=== PATIENT | male | born 1950 | race Caucasian/White ===

== ENCOUNTER 2021-03-18 08:31 | Inpatient (IN) | payer OTHER, BC, MEDICARE ==
[~2021-03-18] VITALS: Ht 175.3 cm; Wt 97.1 kg
[2021-03-18] VITALS (10 sets, daily range): BP systolic 104–130; BP diastolic 49–68; PULSE 51–83; TEMP 98–99
--- NOTE | 2021-03-18 09:15 | NUR ---
PATIENT IS A DIRECT ADMIT INTO ROOM 328 WITH INFECTED LEFT KNEE. PATIENT SCHEUDLED FOR I&D LATER TODAY. NPO. AT BEDSIDE, ADMISSION DATA & MED LIST OBTAINED. HOSPITALIST & ORTHO NOTIFIED OF ARRIVAL. STARTED 20 GAUZE IV INTO LEFT WRIST ON FIRST ATTEMPT. HEAD TO TOE ASSESSMENT COMPLETE. VSS. BS WAS 141. ORIENTED TO ROOM. CALL LIGHT IN REACH.
[2021-03-18] MEDS ORDERED: ULTRAM 50MG TAB50 MG PO (09:21)
[2021-03-18 10:12] LABS: BASO % 0.2 % (0.0-2.0); EOS # 0.1 (0.0-0.7); EOS % 0.5 % (0-4.0); GRAN # 9.5 (1.4-6.5); GRAN % 79.7 % (42.2-75.2); HEMATOCRIT 39.9 % (42.0-52.0); HEMOGLOBIN 12.7 g/dl (13.5-18.0); LYMPH # 1.2 (1.2-3.4); LYMPH % 9.7 % (20.0-51.0); MEAN CELL VOLUME 96 fl (80.0-100.0); MEAN CORPUSCULAR HEMOGLOBIN 31 pg (27.0-31.0); MEAN CORPUSCULAR HGB CONC 32 g/dl (33.0-37.0); MEAN PLATELET VOLUME 11.4 fl (7.4-10.4); MONO # 1.1 (0.1-0.6); MONO % 9.6 % (1.7-9.3); PLATELET COUNT 196 K/mm3 (130-400); RED BLOOD COUNT 4.14 M/mm3 (4.20-5.60); REDCELL DISTRIBUTION WIDTH-CV 13.7 % (11.5-14.5)
[2021-03-18] MEDS ORDERED: HYGROTON 2525 MG/TAB PO (10:27)
[2021-03-18] MEDS ORDERED: ZYLOPRIM 100MG100 MG PO (10:27)
[2021-03-18] MEDS ORDERED: HYTRIN10 M1 PO (10:42)
[2021-03-18] MEDS ORDERED: MOBIC15 MG PO (10:43)
[2021-03-18] MEDS ORDERED: ZESTRIL 20MG TA20 MG PO (10:43)
[2021-03-18] MEDS ORDERED: GLUCOPHAGE500 MG/TAB PO (10:44)
[2021-03-18] MEDS ORDERED: DESYREL 50MG50 MG PO (10:44)
[2021-03-18] MEDS ORDERED: NORVASC 10MG10 MG PO (10:44)
[2021-03-18] MEDS ORDERED: LIPITOR20 MG PO (10:45)
[2021-03-18 10:47] LABS: ERYTHROCYTE SEDIMENTATION RATE 27 mm/hr (0-30)
[2021-03-18 11:30] LABS: COLLECTION METHOD CLEAN CATCH
[2021-03-18 11:42] LABS: MUCOUS Present /lpf; PH 5 (5-8); SQUAMOUS EPITHELIAL None Seen /hpf; URINE APPEARANCE Clear; URINE BACTERIA None Seen /hpf; URINE BILIRUBIN Negative (NEGATIVE); URINE BLOOD Negative (NEGATIVE); URINE COLOR Yellow; URINE GLUCOSE Negative (NEGATIVE); URINE KETONE Trace (NEGATIVE); URINE LEUKOCYTE ESTERASE Negative (NEGATIVE); URINE NITRATE Negative (NEGATIVE); URINE PROTEIN(semi-quant) Negative (NEGATIVE); URINE RBC 0-2 /hpf; URINE UROBILINOGEN Negative (NEGATIVE)
[2021-03-18 12:00] LABS: ALBUMIN 3.4 gm/dL (3.4-4.8); BILIRUBIN,TOTAL 0.6 mg/dL (0.2-1.2); C-REACTIVE PROTEIN 14.6 mg/dL (0.00-0.50); CALCIUM 9.8 mg/dL (8.4-10.2); CREATININE, serum 1.23 mg/dL (0.72-1.25); POTASSIUM 4.1 mmol/L (3.5-4.5); TOTAL PROTEIN 7.1 gm/dL (6.2-8.1)
--- NOTE | 2021-03-18 12:55 | NUR ---
AIVS CALLED FOR PICC PLACEMENT PER ORTHO
--- NOTE | 2021-03-18 13:30 | NUR ---
NURSING RETURNED FROM LUNCH TO FIND PATIENT WAS SETTING OFF HIS CHAIR ALARM. NURSING ENTERED ROOM AND BEGAN YELLING AT STAFF FOR NOT ANSWERING THE CALL LIGHT SOON ENOUGH. PATIENT CALLED OUT TO USE THE BATHROOM, ANSWERED AT THE SURGICAL DESK, WHEN PATIENT DID NOT GET IMMEDIATE RESPONCE HE CALLED OUT APPROX 3 MINUTES LATER. PRIMARY NURSE UNAWARE THE PATIENT HAD CALLED OUT, CALL LIGHT ANSWERED BY ANOTHER NURSE AND PCT NOTIFIED. PATIENT AND ARE NOW BOTH YELLING AT NURSING STATING THE "HAVE THE RIGHT TO CARE, HE HAS THE RIGHT TO BE COMFORTABLE" AND THEN STARTED COMPLAINING ABOUT THE PRESSURE MATRESS BEING TO UNCOMFORTABLE. 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 THE PATIENT'S DID NOT CARE TO HEAR ABOUT PRESSURE ULCER PREVENTION AND ASKED FOR SOMEONE ELSE TO COME HELP HER TO THE BATHROOM AND BACK TO BED. GYMNASTIC COACH ASSISTED PATIENT BACK INTO BED, MATRESS CHANGED FROM PRESSURE MATRESS TO EGG-CRATE TOPPER. IPR LUNCH WAGON OPERATOR NOTIFED AND WENT IN TO TALK TO PATIENT AND HIS .
--- NOTE | 2021-03-18 14:20 | NUR ---
PATIENT GOING DOWN TO SURGERY VIA BED. CONSENT ON CHART. IV FLUIDS INFUSING VIA GRAVITY INTO LEFT WRIST IV. AIVS PLACED PICC INTO RIGHT UPPER ARM. AT BEDSIDE. PATIENT OFF FLOOR.
--- NOTE | 2021-03-18 16:50 | NUR ---
PATIENT BACK IN ROOM POST OP. ORIENTED BUT DROWSY. VSS. DENIES PAIN OR NAUSEA. LEFT KNEE DRESSING IS CD&I WITH ACEWRAP. HEMOVAC TO COMPRESSION WITH NO DRAINAGE NOTED AT THIS TIME. IV FLUIDS INFUSING INTO LEFT WRIST IV. RIGHT UPPER ARM PICC TO INT. HEAD TO TOE ASSESSMENT WNL. AT BEDSIDE. CALL LIGHT IN REACH.
--- NOTE | 2021-03-18 23:21 | NUR ---
Patient alert and oriented. Patient reports left knee pain is minimal while at rest. Left knee covered with Helder-wrap. Dressing C/D/I. Hemovac drains minimal drainage. Patient tolerating PO food well. No N/V noted. Patient using urinal to void. Assisted patient to the bathroom to void around 9pm. Patient ambulates with a walker. Standby assist provided. Call light in reach. Will continue to monitor.
[2021-03-19 03:46] VITALS: BP 116/57; PULSE 59; TEMP 97.9
--- NOTE | 2021-03-19 06:21 | NUR ---
Patient slept well throughout the night. Pain is minimal and denies PRN pain meds. Patient tolerating PO intake well. VS stable. No acute distress noted. Call light in reach.
[2021-03-19 07:16] LABS: BASO % 0.3 % (0.0-2.0); EOS # 0.2 (0.0-0.7); GRAN # 4.9 (1.4-6.5); GRAN % 65.4 % (42.2-75.2); LYMPH # 1.3 (1.2-3.4); LYMPH % 17.7 % (20.0-51.0); MEAN CELL VOLUME 97 fl (80.0-100.0); MEAN CORPUSCULAR HGB CONC 32 g/dl (33.0-37.0); MEAN PLATELET VOLUME 10.4 fl (7.4-10.4); MONO # 1.1 (0.1-0.6); MONO % 14.2 % (1.7-9.3); PLATELET COUNT 201 K/mm3 (130-400); RED BLOOD COUNT 3.42 M/mm3 (4.20-5.60); REDCELL DISTRIBUTION WIDTH-CV 13.7 % (11.5-14.5)
[2021-03-19 07:20] LABS: HEMOGLOBIN 10.5 g/dl (13.5-18.0); MEAN CORPUSCULAR HEMOGLOBIN 31 pg (27.0-31.0)
[2021-03-19 07:21] LABS: HEMATOCRIT 33.3 % (42.0-52.0)
[2021-03-19 07:22] VITALS: BP 128/60; PULSE 58; TEMP 98.1
[2021-03-19 07:33] LABS: CALCIUM 8.9 mg/dL (8.4-10.2); CREATININE, serum 1.25 mg/dL (0.72-1.25)
--- NOTE | 2021-03-19 08:00 | NUR ---
PATIENT IS A&O. VSS ON TELE. RATES PAIN IN LLE AT 5/10. GAVE PRN ROXICODONE, ONE TAB WITH SCHEDULED TYLENOL & TORADOL. PATIENT RESTING UP IN BED WITH LLE ELEVATED WITH PILLOWS. LLE DRESSING IS CD&I WITH ACEWRAP. TEDS TO RLE. SCD'S TO BLE. POSITIVE PEDAL PULSES TO BLE. HEMOVAC DRAIN NOTED SCANT AMOUNTS OF BLOODY DRAINAGE. PATIENT EAT/DRINK/VOIDING SUFFIENT AMOUNTS. LEFT WRIST IV AND RIGHT UPPER ARM PICC TO INT. NO C/O N/V. TOLERATING AHA DIET. BREAKFAST TRAY AT BEDSIDE. AM BS WAS 106. AM MEDS GIVEN. HEAD TO TOE ASSESSMENT COMPLETE, SEE CHARTING. NO OTHER NEEDS AT THIS TIME. CALL LIGHT IN REACH.
[2021-03-19 11:28] VITALS: BP 104/57; PULSE 54; TEMP 98.3
--- NOTE | 2021-03-19 13:56 | NUR ---
Plan is to return home to [facility] with Elham . Patient reports that his PCP is Bandar Sawyer at the [facility] and Dr. Sandy locally. Patient shares that he needs a walker and has crutches. Obtains medications via [facility] or [facility]. Patient reports that he has pain 2 out of ten. Educated on helping with Walker. Will obtain script from and Send to [facility]. Patient denies any other concerns at this time and reports care is good. Patient is hard of hearing and battery . Educated on services available through case management.
[2021-03-19 16:08] VITALS: BP 113/62; PULSE 57; TEMP 98.6
[2021-03-19 19:42] VITALS: BP 121/73; PULSE 57; TEMP 98.4
--- NOTE | 2021-03-19 22:43 | NUR ---
Patient alert and oriented. Patient reports left knee pain is minimal while at rest. Left knee covered with dressing/faiza-wrap. Dressing C/D/I. Left knee remains elevated on the pillow. Hemovac in place and has scant amount of bloody output noted. Left wrist INT and right upper arm PICC site C/DI. Patient tolerating PO food inatake. All scheduled meds given per AUG. Call light in reach. Will continue to monitor.
[2021-03-20] VITALS (7 sets, daily range): BP systolic 104–137; BP diastolic 53–71; PULSE 48–64; TEMP 97.6–99.2
[2021-03-20 07:19] LABS: BASO % 0.4 % (0.0-2.0); EOS # 0.3 (0.0-0.7); EOS % 4.5 % (0-4.0); GRAN # 4.4 (1.4-6.5); GRAN % 62.1 % (42.2-75.2); LYMPH # 1.4 (1.2-3.4); MEAN CELL VOLUME 95 fl (80.0-100.0); MEAN CORPUSCULAR HEMOGLOBIN 30 pg (27.0-31.0); MEAN CORPUSCULAR HGB CONC 32 g/dl (33.0-37.0); MEAN PLATELET VOLUME 10.1 fl (7.4-10.4); MONO # 0.9 (0.1-0.6); MONO % 12.6 % (1.7-9.3); PLATELET COUNT 217 K/mm3 (130-400); REDCELL DISTRIBUTION WIDTH-CV 13.6 % (11.5-14.5)
[2021-03-20 07:27] LABS: HEMATOCRIT 31.3 % (42.0-52.0)
--- NOTE | 2021-03-20 08:00 | NUR ---
PATIENT IS A&O. VSS ON TELE. RATES PAIN IN LLE AT 4/10. GAVE PRN ROXICODONE, ONE TAB WITH SCHEDULED TYLENOL & TORADOL. PATIENT RESTING UP IN BED CHAIR WITH LLE ELEVATED WITH PILLOWS. LLE DRESSING IS CD&I WITH ACEWRAP. ORTHO AT BEDSIDE AND DC'D HEMOVAC DRAIN AND REPLACED DRESSING WITH 4X4'S, ABD, SOFT ROLL & ACEWRAP. TEDS TO RLE. SCD'S CURRENTLY OFF. POSITIVE PEDAL PULSES TO BLE. PATIENT EAT/DRINK/VOIDING SUFFIENT AMOUNTS. LEFT WRIST IV AND RIGHT UPPER ARM PICC TO INT. NO C/O N/V. TOLERATING AHA DIET. BREAKFAST TRAY AT BEDSIDE. AM BS WAS 116. AM MEDS GIVEN. HEAD TO TOE ASSESSMENT COMPLETE, SEE CHARTING. NO OTHER NEEDS AT THIS TIME. CALL LIGHT IN REACH.
[2021-03-20 09:47] LABS: CREATININE, serum 1.16 mg/dL (0.72-1.25); POTASSIUM 4.2 mmol/L (3.5-4.5)
--- NOTE | 2021-03-20 20:15 | NUR ---
PT IN BED, IS ALERT AND ORIENTED X4. HAS DRY DRSG TO LEFT KNEE, ARTURO WRAP SECURING. SL TO LEFT FOREARM AND RT PICC ALL FLUSH WELL. TAKES HS MEDS INCLUDING OXYCODONE 5MG PO FOR PAIN TO LEFT KNEE. VOIDING PER URINAL.
[2021-03-21 03:29] VITALS: BP 127/72; PULSE 50; TEMP 98.5
--- NOTE | 2021-03-21 05:22 | NUR ---
MEDICATED WITH OXYCODONE 5MG PO FOR LEFT KNEE PAIN. TAKES SCHEDULED AM MED WELL. USING URINAL WITHOUT PROBLEM.
[2021-03-21 06:57] LABS: BASO % 0.6 % (0.0-2.0); EOS # 0.3 (0.0-0.7); EOS % 4.9 % (0-4.0); GRAN # 4.1 (1.4-6.5); GRAN % 58.7 % (42.2-75.2); LYMPH # 1.7 (1.2-3.4); LYMPH % 23.5 % (20.0-51.0); MEAN CELL VOLUME 94 fl (80.0-100.0); MEAN CORPUSCULAR HGB CONC 32 g/dl (33.0-37.0); MONO # 0.8 (0.1-0.6); PLATELET COUNT 234 K/mm3 (130-400); RED BLOOD COUNT 3.17 M/mm3 (4.20-5.60); REDCELL DISTRIBUTION WIDTH-CV 13.4 % (11.5-14.5)
[2021-03-21 07:03] LABS: HEMATOCRIT 29.8 % (42.0-52.0); HEMOGLOBIN 9.5 g/dl (13.5-18.0); MEAN CORPUSCULAR HEMOGLOBIN 30 pg (27.0-31.0)
[2021-03-21 07:26] LABS: CALCIUM 9.2 mg/dL (8.4-10.2); CREATININE, serum 1.13 mg/dL (0.72-1.25); POTASSIUM 4.2 mmol/L (3.5-4.5)
[2021-03-21 07:30] VITALS: BP 102/45; PULSE 70; TEMP 98.2
--- NOTE | 2021-03-21 08:00 | NUR ---
PATIENT IS A&O. VSS ON TELE. C/O MILD DISCOMFORT IN LLE BUT IS REQUESTING SOMETHING FOR PAIN BEFORE AM THERAPY. GAVE PRN ROXICODONE, ONE TAB WITH AM MEDS. ORTHO ROUNDED EARLY THIS AM AND TOOK OFF ACEWRAP DRESSING TO LEFT KNEE. APPLIED BANDAIDS X3 TO SURGICAL SITES PER ORTHO. LEFT KNEE NOTED VERY MILD SWELLING & NEARLY NO REDNESS. PATIENT REPORTS LEFT KNEE IS A LITTLE TENDER TO TOUCH. WBAT TO LLE AND PT/OT CONSULTED. PATIENT WILL LIKELY DISCHARGE HOME ON 6 WEEKS OF IV ABX TODAY. RIGHT UPPER ARM PICC INPLACE. LEFT WRIST IV DC'D DUE TO PENDING DISCHARGE AND COVERED WITH GAUZE & COBAN. TEDS TO BLE. SCD'S CURRENTLY OFF. POSITIVE PEDAL PULSES TO BLE. NO C/O N/V. BREAKFAST TRAY AT BEDSIDE. AM MEDS GIVEN. HEAD TO TOE ASSESSMENT WNL. NO OTHER NEEDS AT THIS TIME. CALL LIGHT IN REACH. AT BEDSIDE.
--- NOTE | 2021-03-21 09:58 | NUR ---
Initial visit; Patient and his thanked Insulation Applicator for looking in on him and introducing herself. Patient thanked chaplian for offering God's blessings and keeping him in her prayers.
--- NOTE | 2021-03-21 11:12 | NUR ---
ALEX contacted Gaurang at [facility] and confirmed that they received the FWW order. ALEX requested that they deliver the FWW to the patient's room. The PA notified ALEX that the patient is going to need outpatient IV antibiotics and they are awaiting final cultures to finalize antibiotics recs. ALEX met with the patient and his , Elham, and addressed the antibiotics and informed them of outpatient IV antibiotics in the home with home health or in an Express Unit in our hospital or [facility]. The patient and his report that they would prefer to always have a professional administering the antibotics and would prefer to receive them in [facility]'s Express Unit. Elham reports that she can transport him up here. ALEX updated the patient's RN and PA on the above. The patient is to tentatively discharge tomorrow. *Discharge plan: home with and outpatient IV antibiotics in the Express*
[2021-03-21 11:55] VITALS: BP 122/65; PULSE 59; TEMP 97.7
[2021-03-21] MEDS ORDERED: ROCEPHIN 2GM VIAL21 IV (14:25)
[2021-03-21] MEDS ORDERED: ASPIRIN 32325 MG/TAB PO (14:39)
--- NOTE | 2021-03-21 14:39 | NUR ---
[facility] delivered the walker to the patient's room. The hospitalist is ready to d/c the patient today. ALEX notified and faxed the IV antibiotic script to Arun in the Express Unit. The patient was secured an appointment in the Express Unit at 0800. ALEX updated the patient's RN and his . His was in agreement to the plan. The patient is to discharge back home with his today, 03/21. No additional needs at this time.
[2021-03-21] MEDS ORDERED: PROTONIX 40MG T40 MG PO (14:54)
[2021-03-21] MEDS ORDERED: TYLENOL 500MG500 MG PO (14:57)
[2021-03-21] MEDS ORDERED: ROXICODONE 55 MG/TAB PO (14:58)
[2021-03-21 16:00] VITALS: BP 138/59; PULSE 62; TEMP 97.8
--- NOTE | 2021-03-21 16:56 | NUR ---
PATIENT DISCHARGING HOME VIA WC TO PERSONAL VEHICLE WITH . GAVE DISCHARGE INSTRUCTIONS, PRESCRIPTION & DISCUSSED F/U APTS. ANSWERED QUESTIONS/CONCERNS. SENT PATIENT WITH URINAL (PER HIS REQUEST) AND EXTRA ACEWRAP FOR HIS RIGHT UPPER ARM PICC. OUTPATIENT IV ABX ARRANGED FOR TOMORROW AM, SEE ORDERS. PATIENT IS DISCHARGED.
[2021-03-27] MEDS ORDERED: PROBIOTIC BLEN1 EACH PO (07:58)
== END 2021-03-21 17:00 | disposition home or self-care (01) | DRG 486 ==
LOC: SURG 08:31
PROVIDERS: Orthopaedic Surgery; Physician Assistant; ADMIT Internal Medicine
PROC: 02HV33Z Insertion of Infusion Device into Superior Vena Cava, Percutaneous Approach (ICD-10-PCS; 2021-03-18)
PROC: 0SBD4ZZ Excision of Left Knee Joint, Percutaneous Endoscopic Approach (ICD-10-PCS; principal; 2021-03-18 14:30)
PROC: 0S9D4ZZ Drainage of Left Knee Joint, Percutaneous Endoscopic Approach (ICD-10-PCS; 2021-03-18 14:30)
DX: M00.9 Pyogenic arthritis, unspecified (principal); R78.81 Bacteremia; B95.5 Unspecified streptococcus as the cause of diseases classified elsewhere; N40.0 Benign prostatic hyperplasia without lower urinary tract symptoms; M10.9 Gout, unspecified; E11.9 Type 2 diabetes mellitus without complications; E78.5 Hyperlipidemia, unspecified; G47.00 Insomnia, unspecified; D72.829 Elevated white blood cell count, unspecified
CPT/HCPCS: 99223-AI; 99232-AI; 99239; A9284; C1751; J0171; J0696; J1650; J1885; J2405; J2543; J2704; J3010; J3370; J7030; J7050

== ENCOUNTER 2021-04-21 08:00 | Outpatient (RCR) | payer OTHER, BC ==
[2021-03-22 09:20] VITALS: BP 140/60; PULSE 67; TEMP 98.8
[2021-03-23 08:16] VITALS: BP 112/63; PULSE 72; TEMP 98.8
[2021-03-24 08:28] VITALS: BP 127/68; PULSE 76; TEMP 98.5
[2021-03-24 08:46] LABS: HEMOGLOBIN 10.3 g/dl (13.5-18.0); MEAN CELL VOLUME 94 fl (80.0-100.0); MEAN CORPUSCULAR HEMOGLOBIN 30 pg (27.0-31.0); MEAN CORPUSCULAR HGB CONC 32 g/dl (33.0-37.0); MEAN PLATELET VOLUME 9.7 fl (7.4-10.4); PLATELET COUNT 313 K/mm3 (130-400); RED BLOOD COUNT 3.41 M/mm3 (4.20-5.60); REDCELL DISTRIBUTION WIDTH-CV 13.2 % (11.5-14.5)
[2021-03-24 08:49] LABS: HEMATOCRIT 32.2 % (42.0-52.0)
[2021-03-24 09:03] LABS: ALBUMIN 3.2 gm/dL (3.4-4.8); BILIRUBIN,TOTAL 0.4 mg/dL (0.2-1.2); C-REACTIVE PROTEIN 11.4 mg/dL (0.00-0.50); CALCIUM 9.8 mg/dL (8.4-10.2); CREATININE, serum 1.2 mg/dL (0.72-1.25); TOTAL PROTEIN 7.1 gm/dL (6.2-8.1)
[2021-03-24 09:14] LABS: ERYTHROCYTE SEDIMENTATION RATE 73 mm/hr (0-30)
[2021-03-25 08:17] VITALS: BP 107/61; PULSE 73; TEMP 98.8
[2021-03-26 08:12] VITALS: BP 101/66; PULSE 69; TEMP 98.8
[2021-03-27 07:55] VITALS: BP 108/70; PULSE 72; TEMP 99
[2021-03-28 08:30] VITALS: BP 114/69; PULSE 64; TEMP 98.7
[2021-03-29 08:21] VITALS: BP 95/63; PULSE 66; TEMP 98.3
[2021-03-30 08:02] VITALS: BP 111/65; PULSE 70; TEMP 98.3
[2021-03-31 08:20] VITALS: BP 116/65; PULSE 67; TEMP 98
[2021-04-01 08:03] VITALS: BP 126/64; PULSE 71; TEMP 98.1
[2021-04-02 09:00] VITALS: BP 129/67; PULSE 74; TEMP 97.8
[2021-04-03 08:31] VITALS: BP 103/63; PULSE 69; TEMP 98.4
[2021-04-04 07:49] VITALS: BP 119/63; PULSE 68; TEMP 98.2
[2021-04-04 07:52] LABS: HEMOGLOBIN 10.1 g/dl (13.5-18.0); MEAN CELL VOLUME 93 fl (80.0-100.0); MEAN CORPUSCULAR HEMOGLOBIN 29 pg (27.0-31.0); MEAN CORPUSCULAR HGB CONC 32 g/dl (33.0-37.0); MEAN PLATELET VOLUME 9.1 fl (7.4-10.4); PLATELET COUNT 519 K/mm3 (130-400); RED BLOOD COUNT 3.45 M/mm3 (4.20-5.60); REDCELL DISTRIBUTION WIDTH-CV 13.5 % (11.5-14.5)
[2021-04-04 07:53] LABS: HEMATOCRIT 32.1 % (42.0-52.0)
[2021-04-04 08:11] LABS: ALBUMIN 2.7 gm/dL (3.4-4.8); BILIRUBIN,TOTAL 0.2 mg/dL (0.2-1.2); C-REACTIVE PROTEIN 6.3 mg/dL (0.00-0.50); CALCIUM 9.5 mg/dL (8.4-10.2); CREATININE, serum 1.08 mg/dL (0.72-1.25); POTASSIUM 4.2 mmol/L (3.5-4.5); TOTAL PROTEIN 6.9 gm/dL (6.2-8.1)
[2021-04-04 08:26] LABS: ERYTHROCYTE SEDIMENTATION RATE 89 mm/hr (0-30)
[2021-04-05 08:19] VITALS: BP 103/63; PULSE 72; TEMP 9837
[2021-04-06 08:01] VITALS: BP 121/72; PULSE 68; TEMP 98.6
[2021-04-07 08:16] VITALS: BP 102/41; PULSE 68; TEMP 98.9
[2021-04-08 08:08] VITALS: BP 104/63; PULSE 77; TEMP 98.6
[2021-04-09 08:14] VITALS: BP 98/58; PULSE 71; TEMP 98.9
[2021-04-10 08:57] VITALS: BP 105/62; PULSE 69; TEMP 98.2
[2021-04-11 08:01] VITALS: BP 126/68; PULSE 69; TEMP 98.7
[2021-04-11 08:09] LABS: HEMOGLOBIN 10.2 g/dl (13.5-18.0); MEAN CELL VOLUME 92 fl (80.0-100.0); MEAN CORPUSCULAR HEMOGLOBIN 29 pg (27.0-31.0); MEAN CORPUSCULAR HGB CONC 31 g/dl (33.0-37.0); MEAN PLATELET VOLUME 9.4 fl (7.4-10.4); PLATELET COUNT 390 K/mm3 (130-400); RED BLOOD COUNT 3.56 M/mm3 (4.20-5.60); REDCELL DISTRIBUTION WIDTH-CV 13.4 % (11.5-14.5)
[2021-04-11 08:16] LABS: HEMATOCRIT 32.7 % (42.0-52.0)
[2021-04-11 08:30] LABS: ALBUMIN 2.8 gm/dL (3.4-4.8); BILIRUBIN,TOTAL 0.3 mg/dL (0.2-1.2); C-REACTIVE PROTEIN 12.4 mg/dL (0.00-0.50); CALCIUM 10.1 mg/dL (8.4-10.2); CREATININE, serum 1.09 mg/dL (0.72-1.25); POTASSIUM 3.8 mmol/L (3.5-4.5); TOTAL PROTEIN 6.9 gm/dL (6.2-8.1)
[2021-04-11 08:58] LABS: ERYTHROCYTE SEDIMENTATION RATE 85 mm/hr (0-30)
[2021-04-12 07:51] VITALS: BP 119/69; PULSE 69; TEMP 98.7
[2021-04-13 08:11] VITALS: BP 128/67; PULSE 66; TEMP 98.8
[2021-04-14 08:30] VITALS: BP 105/65; PULSE 65; TEMP 98.1
[2021-04-15 08:43] VITALS: BP 102/65; PULSE 69; TEMP 98.2
[2021-04-16 08:26] VITALS: BP 129/71; PULSE 62; TEMP 98.7
[2021-04-17 08:22] VITALS: BP 118/69; PULSE 69; TEMP 98
[2021-04-18 08:09] VITALS: BP 120/66; PULSE 65; TEMP 97.8
[2021-04-18 08:24] LABS: BASO % 0.6 % (0.0-2.0); EOS # 0.3 K/mm3 (0.0-0.7); EOS % 3.9 % (0-4.0); GRAN # 4.1 K/mm3 (1.4-6.5); GRAN % 61.8 % (42.2-75.2); HEMOGLOBIN 10.9 g/dl (13.5-18.0); LYMPH # 1.6 K/mm3 (1.2-3.4); LYMPH % 24.1 % (20.0-51.0); MEAN CELL VOLUME 93 fl (80.0-100.0); MEAN CORPUSCULAR HEMOGLOBIN 28 pg (27.0-31.0); MEAN CORPUSCULAR HGB CONC 30 g/dl (33.0-37.0); MEAN PLATELET VOLUME 9.2 fl (7.4-10.4); MONO # 0.6 K/mm3 (0.1-0.6); MONO % 9.4 % (1.7-9.3); PLATELET COUNT 375 K/mm3 (130-400); RED BLOOD COUNT 3.88 M/mm3 (4.20-5.60); REDCELL DISTRIBUTION WIDTH-CV 13.9 % (11.5-14.5)
[2021-04-18 08:29] LABS: HEMATOCRIT 36.1 % (42.0-52.0)
[2021-04-18 08:40] LABS: ALBUMIN 3.2 gm/dL (3.4-4.8); BILIRUBIN,TOTAL 0.2 mg/dL (0.2-1.2); C-REACTIVE PROTEIN 1.5 mg/dL (0.00-0.50); CALCIUM 9.6 mg/dL (8.4-10.2); CREATININE, serum 0.99 mg/dL (0.72-1.25); POTASSIUM 4.1 mmol/L (3.5-4.5); TOTAL PROTEIN 6.9 gm/dL (6.2-8.1)
[2021-04-18 09:23] LABS: ERYTHROCYTE SEDIMENTATION RATE 37 mm/hr (0-30)
[2021-04-19 07:51] VITALS: BP 102/64; PULSE 67; TEMP 98.1
[2021-04-20 08:30] VITALS: BP 120/68; PULSE 67
[~2021-04-21] VITALS: Ht 175.3 cm; Wt 95.3 kg
[~2021-04-21 08:00] MED LIST: ASPIRIN 32325 MG/TAB PO; DESYREL 50MG50 MG PO; GLUCOPHAGE500 MG/TAB PO; HYGROTON 2525 MG/TAB PO; HYTRIN10 M1 PO; LIPITOR20 MG PO; MOBIC15 MG PO; NORVASC 10MG10 MG PO; PROBIOTIC BLEN1 EACH PO; PROTONIX 40MG T40 MG PO; ROCEPHIN 2GM VIAL21 IV; ROXICODONE 55 MG/TAB PO; TYLENOL 500MG500 MG PO; ULTRAM 50MG TAB50 MG PO; ZESTRIL 20MG TA20 MG PO; ZYLOPRIM 100MG100 MG PO
[2021-04-21 08:06] VITALS: BP 127/76; PULSE 70; TEMP 98.5
[2021-04-21 08:28] VITALS: BP 127/76; PULSE 70; TEMP 98.5
--- NOTE | 2021-04-21 10:20 | NUR ---
30 min flat time completed. Dressing to rt upper arm remains clean, dry and intact. Pt assisted out by wheelchair.
== END 2021-04-21 12:24 ==
LOC: EUO 08:00
PROVIDERS: Internal Medicine; Internal Medicine Infectious Disease
DX: R78.81 Bacteremia (principal); M00.262 Other streptococcal arthritis, left knee
CPT/HCPCS: J0696